=== PATIENT | female | born 2000 | race Caucasian/White ===

== ENCOUNTER 2025-04-09 19:26 | Emergency (ER) | payer BC ==
[~2025-04-09] VITALS: Ht 175.3 cm; Wt 72.6 kg
[2025-04-09] MEDS ORDERED: METOCLOPRAMIDE HCL 10 MG/2 ML VIAL ONE (20:05)
[2025-04-09] MEDS ORDERED: KETOROLAC TROMETHAMINE 15 MG/ML VIAL ONE (20:05)
[2025-04-09] MEDS: IV NS 0.9% 1,000 ML BAG IV ONE (20:30)
[2025-04-09] MEDS: METOCLOPRAMIDE HCL 10 MG/2 ML VIAL IV ONE (20:30)
[2025-04-09] MEDS: KETOROLAC TROMETHAMINE 15 MG/ML VIAL IV ONE (20:31)
[2025-04-09 20:35] LABS: CALCIUM, SERUM 8.8 mg/dL (8.5-10.1); POTASSIUM 4.2 mmol/L (3.5-5.1)
[2025-04-09 21:35] VITALS: BP 117/73; TEMP 98; O2SAT 98
== END 2025-04-09 21:35 | disposition home or self-care (01) ==
LOC: ER 19:34
DX: H53.8 Other visual disturbances (principal); E10.65 Type 1 diabetes mellitus with hyperglycemia; Z79.4 Long term (current) use of insulin
CPT/HCPCS: 99284; 96374; 96361; 96375; 80048; 36415; J1885; J2765; J7030